=== PATIENT | female | born 1970 | race Caucasian/White ===

== ENCOUNTER → 2016-09-17 | Outpatient (CLI) | payer BC ==
[~2016-09-17] MED LIST: AMIT10TA6 PO; HYDR-3989 PO; LISI-114 PO; [UNRECOGNIZED DRUG - CODE]
== END ==
LOC: LABN 14:34
PROVIDERS: ATTEND Nurse Practitioner Obstetrics & Gynecology
DX: N76.0 Acute vaginitis (principal)
CPT/HCPCS: 87210; 87220

== ENCOUNTER 2016-10-26 12:57 | Emergency (ER) | payer BC ==
[~2016-10-26] VITALS: Ht 162.6 cm; Wt 50.5 kg
[~2016-10-26 12:57] MED LIST changes: +ACET-2321 PO; +CIPR-280 PO; +IBUP100T8 PO
--- OUTSIDE RECORDS SUMMARY | 2016-10-26 13:02 | XMS REPORT | Continuity of Care Document ---
Author Author [facility] Organization [facility] Address Unknown Phone Unavailable Support Name Relationship Address Phone ADITYA DUARTE APRN Caregiver [address] [place] [address] Unavailable LILIANA COULTER MD Caregiver [address] [place] [address] [place] [address] Unavailable NAHOMY LUCIANO Next Of Kin [address], [place] [id number] C Insurance Providers Guarantor Shonna Silva Address [address] [place] [address] C Email [email or web address] Payer [facility] Policy Number [id number] Subscriber's Name Nahomy Luciano Relationship 01 Spouse Group Number [id number] Effective Date 11 Chief Complaint and Reason for Visit Chief Complaint Female Urogenital Problems Reason for Visit [id number] Problems Active Problems Medical Problem Onset Date Status Lumbar strain Unknown Acute Neck strain Unknown Acute Pelvic contusion Unknown Acute Pelvic contusion Unknown Acute Shoulder strain Unknown Acute Past Problems Medical Problem Onset Date Kidney pain Unknown Urinary frequency Unknown Medications Current Home Medications Medication Dose Units Route Directions Days Qty Instructions Start Date Acetaminophen (Tylenol) 325 Mg Tablet 1 Tab Oral Every 4 Hours Prn 30 Tablet 10/26/16 Ciprofloxacin Hcl 500 Mg Tablet 500 Mg Oral Twice A Day 3 Days [address] Raffaele Henderson [employer] [facility] [address] [phone] 10/26/16 Ibuprofen 100 Mg Tablet 1 Tab Oral Every 4 Hours 10/26/16 Lisinopril 5 Mg Tablet 5 Mg Oral Bedtime 01/30/12 Valacyclovir Hcl (Valtrex) 1,000 Mg Tablet Daily 09/17/09 Past Home Medications Medication Directions Ordered Status Herblily Life , 09/17/09 Discontinued Social History Social History Problem Response Recorded Date/Time Onset Date Status Hx Substance Use No 03/09/2014 7:31am Not Applicable Not Applicable Hx Alcohol Use No 03/09/2014 7:31am Not Applicable Not Applicable Has the pt used tobacco in the last 12 months No 03/09/2014 7:31am Not Applicable Not Applicable Query Response Start Date Stop Date Smoking Status Never smoker Hospital Discharge Instructions No hospital discharge instructions. Plan of Care Discharge Date 10/26/16 12:16pm Disposition 01 DISCHARGED HOME, SELF-CARE Condition at Discharge Stable Instructions/Education Provided Kidney Stones (DC) Urinary Tract Infection in Women (ED) Prescriptions See Medication Section Referrals LILIANA COULTER MD Address: [address] [place] [address] [place] [phone] Additional Instructions/Education Take Cipro as directed. I have recommended that you go to the emergency department for evaluation for your flank pain today. Follow with primary care by Friday. If symptoms are worsening, go to the emergency department immediately. Functional Status No functional status results. Allergies, Adverse Reactions, Alerts Allergen Type Severity Reaction Status Last Updated Penicillin Allergy Unknown Rash Active 10/26/16 Cephalexin Adverse Reaction Mild Carisa Active 10/26/16 Immunizations Query Response on File Recorded Date/Time Hx Influenza Vaccination Y fall 201203/09/14 7:31am Hx Pneumococcal Vaccination Y 5-6 yrs ago 03/09/14 7:31am Hx Tetanus, Diptheria, Pertussis Y 01/30/2012 01/02/14 2:13pm Hx Influenza Vaccination Y fall 201203/09/14 7:31am Hx Tetanus, Diptheria, Pertussis Y 01/30/2012 01/02/14 2:13pm Influenza Vaccine Hx 201510/26/16 11:42am Vital Signs Acute Vital Signs Vital Response Date/Time Temperature (Fahrenheit) 98.0 deg F (96.8 - 99.1) 10/26/2016 11:35am Temperature (Calculated Celsius) 36.46408 degrees C (36.0 - 37.3) 10/26/2016 11:35am Pulse Rate (adult) 72 bpm (60 - 100) 10/26/2016 11:35am Respiratory Rate 16 breaths/min (10 - 20) 10/26/2016 11:35am O2 Sat by Pulse Oximetry 97 % (90 - 100) 10/26/2016 11:35am Blood Pressure 120/81 mm Hg 10/26/2016 11:35am Height (Inches) 66.00 inches 10/26/2016 11:35am Weight (Kilograms) 91.900 kg 10/26/2016 11:35am Body Mass Index (BMI) 32.0 10/26/2016 11:35am Results Laboratory Results Test Name Result Units Flags Reference Collection Date/Time Result Date/ Time Comments Urine Collection Type CLEANCATCH-MIDSTREAM 10/26/2016 11:50am 10/26 11:57am Urine Color YELLOW YELLOW 10/26/2016 11:50am 10/26/2016 11:57am Urine Turbidity CLEAR CLEAR 10/26/2016 11:50am 10/26/2016 11:57am Urine Specific [place] 1.020 1.015-1.025 10/26/2016 11:50am 2016 11:57am Urine pH 5.0 5.0-8.0 10/26/2016 11:50am 10/26/2016 11:57am Urine Leukocyte Esterase NEGATIVE NEGATIVE 10/26/2016 11:50am 2016 11:57am Urine Nitrite NEGATIVE NEGATIVE 10/26/2016 11:50am 10/26/2016 11: 57am Urine Protein NEGATIVE NEGATIVE 10/26/2016 11:50am 10/26/2016 11: 57am Urine Glucose (UA) NEGATIVE NEGATIVE 10/26/2016 11:50am 10/26/2016 11 :57am Urine Ketones NEGATIVE NEGATIVE 10/26/2016 11:50am 10/26/2016 11: 57am Urine Urobilinogen NORMAL EU/DL NORMAL 10/26/2016 11:50am 10/26/2016 11 :57am Urine Bilirubin NEGATIVE NEGATIVE 10/26/2016 11:50am 10/26/2016 11: 57am Urine Blood NEGATIVE NEGATIVE 10/26/2016 11:50am 10/26/2016 11:57am Procedures Procedure Status Date Provider(s) Smear wet mount saline/ink Completed 09/17/16 Tissue exam for fungi Completed 09/17/16 Encounters Encounter Location Arrival/Admit Date Discharge/Depart Date Attending Provider Departed Emergency Room [facility] 10/26/16 10:55am 10/26/16 12: 16pm ADITYA DUARTE APRN Registered Clinic [facility] 09/17/16 2:34pm JOSE ABBOTT APRN Recent Diagnosis
[2016-10-26 13:12] VITALS: TEMP 98.5; Ht 162.6 cm; Wt 50.5 kg
--- NOTE | 2016-10-26 14:11 | ERPDOC ---
Departure Disposition Decision Date: October 26, 2016 Disposition Decision Time: 15:23 Disposition: 01 DISCHARGED HOME, SELF-CARE Impression Impression Impression: Primary Impression: Trigger point with back pain Additional Impression: Back muscle spasm Severity: Moderate Condition: Improved Seen By: Mid-level only Referrals: LILIANA COULTER MD (Family) Patient Instructions: Muscle Spasm (ED), Trigger Point Pain (ED) Problems/Meds/Labs Reviewed?: Yes Medications reviewed and manag: Yes Additional Instructions: Your have a knotted muscle and spasms in your back. Take diclofenac 75mg twice daily with food. You may take baclofen 10mg every 8 hours for muscle spasms. This medication may cause drowsiness so avoid operating heavy machinery driving, or drinking alcohol while taking. You may use heat to her back for relief of pain as well. Follow treatment plan. Try to avoid any activity and any repetitive movement that may increase muscle spasms in your back. Follow with your PCP as needed for reevaluation. Follow up care ordered?: Yes Mental Status: Alert, Oriented Scripts Baclofen (Baclofen) 10 Mg Tablet 1 TAB PO TID Y for MUSCLE PAIN for 10 Days, #30 TAB Prov: JAHAIRA ABBOTT APRN 10/26/16 Diclofenac Sodium (Diclofenac Sodium) 75 Mg Tablet.dr 1 TAB PO BID for 10 Days, #20 TAB Prov: JAHAIRA ABBOTT APRN 10/26/16 HPI - Back Pain General Chief Complaint: Back Pain or Injury Stated Complaint: POSS KIDNEY STONE, PAIN Time Seen by Provider: 14:11 Source: patient HPI - Back Pain Initial Comments Patient presents to ED with right sided thoracic back pain that she has had for approx. 10 days. Saw her chiropractor last week but adjustment did not help pain. Patient was seen today at and had a negative UA (per patient) but was started on cipro "in case I have a kidney stone". Patient says that she had blood in UA 6 weeks ago. Pain has continued since leaving so patient has come to ED for evaluation. Pain is worse with movement and palpation. Denies fever, chills, nausea, vomiting, abdominal pain, dysuria, urinary frequency, strain or injury. Pain/Severity Scale: Now: 9/10 1 - Reports pain Associated Sypmtoms: DENIES: fever, loss of bladder control, loss of bowel control, lower back pain, muscle spasms, numbness in legs/feet, sensory/motor loss, tingling in legs/feet, weakness Allergies: Coded Allergies: Penicillins (Verified Allergy, Unknown, Rash, 10/26/16) cephalexin (Verified Adverse Reaction, Mild, Carisa, 10/26/16) Past History Past Medical History Metabolic: hypertension Cardiac: DENIES: angina Respiratory: DENIES: asthma GI: gallbladder disease, DENIES: ulcers Female: UTI, kidney stones, DENIES: renal insufficiency Neurological: DENIES: CVA, seizures Musculoskeletal: osteoarthritis, rheumatoid arthritis Psychological: DENIES: depression Surgical History General: gallbladder, other Reproductive/: , hysterectomy Family History Family PMH: FOUND: cancer Vaccines Hx Influenza Vaccination: Yes (FALL 2012) Hx Pneumococcal Vaccination: Yes (5-6 yrs ago) Hx Tetanus, Diptheria, Pertuss: Yes (01/30/2012) Social History Second Hand Exposure: No Substance Use Type: does not use Alcohol Intake: none Current Occupational Status: employed Review of Systems Constitutional Constitutional: DENIES: chills, dizziness, fever, weakness Eyes General: DENIES: erythema, exudate Lids/Accessories: DENIES: erythema, swelling ENMT Ears: DENIES: pain Hearing: DENIES: hearing loss Sinuses: DENIES: congestion, rhinorrhea Mouth/Throat: DENIES: sore throat Cardiovascular Cardiac: DENIES: chest pain, murmur Rhythm/Rate: DENIES: palpitations Pulmonary Respiratory: DENIES: cough, dyspnea GI Upper Abdomen: DENIES: nausea, pain, vomiting Lower Abdomen: DENIES: diarrhea, pain General: DENIES: dysuria, pain Musculoskeletal General: pain, tenderness Integumentary Skin: DENIES: color change, itching, rash Neurological General: DENIES: ataxia, change in strength, numbness, paralysis/paresis, weakness Psychiatric Psychiatric: DENIES: anxiety, depression, nervousness Physical Exam General General Nourishment: well developed, adult General Body Habitus: well groomed Vitals and Pain First Documented Vital Signs Date Time Temp Pulse Resp B/P Pulse Ox O2 Delivery O2 Flow Rate FiO2 10/26/16 13:12 98.5 94 20 133/104 97 Room Air Weight: Kilograms: 50.500 Height (feet): 5 Height (inches): 4.00 Triage Pain Scale: Eyes (brief) Eyes Brief: found: EOMI ENMT (brief) ENMT Brief: NOT FOUND: nasal exudate, nasal swelling Neck (brief) Neck: FOUND: trachea midline, NOT FOUND: tenderness Respiratory (brief) Respiratory: FOUND: clear all artis, equal bilaterally, symmetrical Cardiovascular (brief) Cardiac: FOUND: regular rate, regular rhythm Musculoskeletal Muscular: FOUND: trigger point (right thoracic area) Back: FOUND: spasm, tenderness (over trigger point right thoracic area), NOT FOUND: spine point tenderness Integumentary (brief) Integumentary Brief: FOUND: dry, pink, warm Neurologic (brief) Neurological Brief: FOUND: gait w/o gross def to obs, motor-no gross deficits, sensory-no gross deficits, NOT FOUND: ataxia Psychiatric (brief) Psychiatric Brief: FOUND: alert, normal affect, oriented Differential Diagnoses Considering: Lumbar Sprain, Lumbar Strain, Renal Colic, Thoracic Sprain, Thoracic Strain, UTI Progress Results/Orders Orders Procedure Category Date Status Time Ketorolac (Toradol) PHA 10/26/16 Complete 14:30 Orphenadrine (Norflex) PHA 10/26/16 Complete 14:30 Medications Current ED Medications Ketorolac Tromethamine (Toradol) 60 mg O ONCE IM Last administered on 14:51; Start 10/26/16 at 14:30; Stop 10/26/16 at 14:31; Status DC Orphenadrine Citrate (Norflex) 60 mg O ONCE IM Last administered on 10/26/16 14:52; Start 10/26/16 at 14:30; Stop 10/26/16 at 14:31; Status DC Progress Progress UA at CC was negative for infection/blood. Patient reports improved pain after toradol and norflex. I discussed exam findings, treatment plan and follow up with PCP which patient verbalized understanding. JAHAIRA ABBOTT APRN October 26, 2016 14:11
[2016-10-26] MEDS ORDERED: KETOROLAC 60mg/2ml INJECTION IM ONE (14:30)
[2016-10-26] MEDS ORDERED: ORPHENADRINE 60mg/2ml INJECTION IM ONE (14:30)
--- NOTE | 2016-10-26 14:55 | NUR ---
MEDICATIONS TORADOL AND NORFLEX ADMINISTERED ORDERED
--- NOTE | 2016-10-26 15:10 | NUR ---
COMFORT PT REPORTS HER PAIN IS GETTING BETTER AND SHE IS FEELING MORE RELAXED
[2016-10-26] MEDS ORDERED: BACL10TA PO (15:32)
[2016-10-26] MEDS ORDERED: DICL75TA5 PO (15:32)
[2016-10-26 15:45] VITALS: BP 128/71; PULSE 77; RESP 20; O2SAT 96
--- NOTE | 2016-10-26 15:45 | NUR ---
DISMISSAL NOTE PT. STANDING IN ROOM AND STATES SHE FEELS BETTER. DISMISSAL INSTRUCTIONS GIVEN TO PT. AND NO FURTHER QUESTIONS. RX FOR DICLOFENAC AND BACLOFEN.
== END 2016-10-26 15:45 | disposition home or self-care (01) ==
LOC: ED 12:57
DX: M54.6 Pain in thoracic spine (principal); M62.830 Muscle spasm of back
CPT/HCPCS: 96372; 99283; J1885; J2360